=== PATIENT | male | born 1990 | race Caucasian/White ===

== ENCOUNTER 2017-03-25 02:47 | Emergency (ER) | payer OTHER ==
[2017-03-25 03:01] VITALS: BP 138/63; PULSE 87; TEMP 98.3; BMI 27.3
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
== END 2017-03-25 03:45 | disposition home or self-care (01) ==
LOC: JER 02:47
DX: Z77.21 Contact with and (suspected) exposure to potentially hazardous body fluids (principal); Y35.891A Legal intervention involving other specified means, law enforcement official injured, initial encounter; Y93.89 Activity, other specified; Y92.89 Other specified places as the place of occurrence of the external cause; Y99.8 Other external cause status
CPT/HCPCS: 99281-25

== ENCOUNTER 2017-07-05 | Emergency (ER) | payer OTHER ==
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
[2017-07-05 01:01] VITALS: BP 121/78; PULSE 85; TEMP 97.7; BMI 28.1
== END 2017-07-05 01:06 | disposition home or self-care (01) ==
LOC: JER
DX: Z77.21 Contact with and (suspected) exposure to potentially hazardous body fluids (principal); Y35.811A Legal intervention involving manhandling, law enforcement official injured, initial encounter; Y93.89 Activity, other specified; Y92.89 Other specified places as the place of occurrence of the external cause; Y99.0 Civilian activity done for income or pay
CPT/HCPCS: 99281-25

== ENCOUNTER 2017-11-14 21:01 | Emergency (ER) | payer OTHER ==
[2017-11-14] MEDS ORDERED: DIPHTH,PERTUSS(ACELL),TET VAC 0.5 ML VIAL IM ONE (21:08)
[2017-11-14] MEDS ORDERED: BACITRACIN 15 GM TUBE TOPICAL OINTMENT TP ONE (21:09)
[2017-11-14 21:10] VITALS: BP 141/76; PULSE 93; TEMP 98.4; BMI 28.5
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
[2017-11-14] MEDS ORDERED: BACITRACIN 0.9 GM PACKET ONE (21:14)
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
== END 2017-11-14 21:24 | disposition home or self-care (01) ==
LOC: JERFT 21:01
PROC: 3E0234Z Introduction of Serum, Toxoid and Vaccine into Muscle, Percutaneous Approach (ICD-10-PCS; principal; 2017-11-14)
DX: S60.511A Abrasion of right hand, initial encounter (principal); S60.412A Abrasion of right middle finger, initial encounter; Y35.891A Legal intervention involving other specified means, law enforcement official injured, initial encounter; Y93.89 Activity, other specified; Y92.89 Other specified places as the place of occurrence of the external cause; Y99.8 Other external cause status
CPT/HCPCS: 99281-25

== ENCOUNTER 2018-01-09 20:17 | Emergency (ER) | payer OTHER ==
[2018-01-09 20:31] VITALS: BP 132/81; PULSE 81; TEMP 98.6; BMI 29.0
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
== END 2018-01-09 21:01 | disposition home or self-care (01) ==
LOC: JERFT 20:17
DX: M25.522 Pain in left elbow (principal); V43.52XA Car driver injured in collision with other type car in traffic accident, initial encounter; Y92.414 Local residential or business street as the place of occurrence of the external cause; Y93.89 Activity, other specified; Y99.0 Civilian activity done for income or pay
CPT/HCPCS: 99281-25

== ENCOUNTER 2018-06-29 21:05 | Emergency (ER) | payer OTHER ==
[2018-06-29 21:08] VITALS: BP 111/61; PULSE 74; TEMP 98.3; BMI 26.6
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
--- NOTE | 2018-06-29 21:58 | PDOC ---
*Physical Exam - Vital Signs Last Vital Signs Temp Pulse Resp BP Pulse Ox 98.3 F 74 18 111/61 97 06/29/18 21:07 06/29/18 21:07 06/29/18 21:07 06/29/18 21:07 06/29/18 21:07 ED Treatment Course - LABORATORY CBC & Chemistry Diagram: 06/29/18 22:20 06/29/18 22:20 Medical Decision Making - Medical Decision Making 06/29/18 21:58 Patient seen by the advanced practice provider under my direct supervision. Ancillary testing reviewed as necessary. I agree with plan as outlined by the advanced practice provider. *DC/Admit/Observation/Transfer Diagnosis at time of Disposition: Exposure to blood and/or body fluid - Referrals Referrals: Karri Fletcher MD [Primary Care Provider] - - Patient Instructions Printed Discharge Instructions: How to Handle Body Fluid Exposure -- Non- Healthcare Worker (At Home, [facility] Additional Instructions: please follow up with your employee health as soon as possible. - Post Discharge Activity Forms/Work/School Notes: Back to Work
[2018-06-29 22:27] LABS: BASO % 0.8 % (0-2.0); EOS % 3.5 % (0-4.5); HEMATOCRIT 40.4 % (35.4-49); HEMOGLOBIN 13.8 GM/dL (11.7-16.9); LYMPH % 29.6 % (8-40); MCH 27.4 pg (25.7-33.7); MCHC 34.1 g/dl (32.0-35.9); MEAN CELL VOLUME 80.3 fl (80-96); MEAN PLT VOLUME 10.2 fl (7.5-11.1); MONO % 6.7 % (3.8-10.2); NEUT % 59.4 % (42.8-82.8); PLATELET COUNT 179 K/MM3 (134-434); RBC 5.03 M/mm3 (4.00-5.60); RDW 14.8 % (11.9-15.9)
[2018-06-29 23:59] LABS: ALBUMIN 4.4 g/dl (3.4-5.0); ALK PHOS 64 U/L (45-117); ANION GAP 7 MMOL/L (8-16); BILIRUBIN,TOTAL 0.9 mg/dL (0.2-1); BLOOD UREA NITROGEN 18 mg/dL (7-18); CALCIUM 9.2 mg/dL (8.5-10.1); CHLORIDE 102 mmol/L (98-107); CHOLESTEROL 216 mg/dL (50-200); CO2 26 mmol/L (21-32); CREATININE 0.8 mg/dL (0.55-1.3); GLUCOSE,RANDOM 87 mg/dL (74-106); LDH 167 U/L (87-246); PHOSPHOROUS 3.2 mg/dL (2.5-4.9); POTASSIUM 4.1 mmol/L (3.5-5.1); SGOT/AST 17 U/L (15-37); SGPT/ALT 35 U/L (13-61); SODIUM 135 mmol/L (136-145); TRIGLYCERIDES 97 mg/dL (0-150); URIC ACID 5.2 mg/dL (2.6-7.2)
[2018-06-30 00:40] LABS: GAMMA GLUTAMYL TRANSPEPTIDASE 23 U/L (5-85)
[2018-07-01 05:10] LABS: HBsAG SCREEN Negative (Negative)
== END 2018-06-29 23:23 | disposition home or self-care (01) ==
LOC: JER 21:05 → JERFT 21:05 → JER 23:23
DX: Z77.21 Contact with and (suspected) exposure to potentially hazardous body fluids (principal); S50.812A Abrasion of left forearm, initial encounter; Y35.811A Legal intervention involving manhandling, law enforcement official injured, initial encounter; Y93.89 Activity, other specified; Y92.89 Other specified places as the place of occurrence of the external cause; Y99.0 Civilian activity done for income or pay
CPT/HCPCS: 36415; 80053; 82465; 82977; 83615; 84100; 84478; 84550; 85025; 86317; 86706; 86803; 87340; 87389; 99281-25

== ENCOUNTER 2019-03-08 16:46 | Emergency (ER) | payer OTHER ==
[2019-03-08] MEDS ORDERED: BACITRACIN 0.9 GM PACKET TP ONE (16:52)
[2019-03-08] MEDS ORDERED: ACETAMINOPHEN 500 MG TABLET (FP) PO ONE (16:52)
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
[2019-03-08 16:53] VITALS: BP 136/85; PULSE 114; TEMP 98.2; BMI 28.1
--- NOTE | 2019-03-08 17:20 | PDOC ---
History of Present Illness - General Chief Complaint: Injury Stated Complaint: [employer] WORK RELATED Time Seen by Provider: 03/08/19 16:49 History Source: Patient - History of Present Illness Timing/Duration: reports: this evening Severity: Yes: mild Location: reports: hands Past History - Past Medical History Allergies/Adverse Reactions: Allergies Allergy/AdvReac Type Severity Reaction Status Date / Time No Known Allergies Allergy Verified 03/08/19 16:53 Home Medications: Ambulatory Orders NK [No Known Home Medication] 06/10/15 COPD: No - Immunization History Immunization Up to Date: Yes - Psycho Social/Smoking Cessation Hx Smoking History: Never smoked Have you smoked in the past 12 months: No Hx Alcohol Use: Yes Drug/Substance Use Hx: No Substance Use Type: None Review of Systems - Review of Systems Integumentary: Yes: Bruising *Physical Exam - Vital Signs Last Vital Signs Temp Pulse Resp BP Pulse Ox 98.2 F 114 H 16 136/85 96 03/08/19 16:50 03/08/19 16:50 03/08/19 16:50 03/08/19 16:50 03/08/19 16:50 - Physical Exam General Appearance: Yes: Appropriately Dressed. No: Apparent Distress HEENT: positive: Normal Voice Neck: positive: Supple Respiratory/Chest: negative: Respiratory Distress Extremity: positive: Pedal Edema (multiple superficial abrasions to dorsum of hand, b/l, no joint swelling/deformity) Medical Decision Making - Medical Decision Making 03/08/19 17:19 29-year-old male, no significant history, works for the [employer] and here with bilateral hand injury after arresting perp today. States he sustained injuries while wrestling perp up to the ground. No other injuries at this time. Patient well-appearing and stable with superficial abrasions to dorsum of bilateral hands. No evidence of serious injury at this time. Local wound care and dressing applied here. DC to return as needed Discharge - Discharge Information Problems reviewed: Yes Clinical Impression/Diagnosis: Right wrist pain, Abrasion Disposition: HOME - Follow up/Referral Referrals: Karri Fletcher MD [Primary Care Provider] - - Patient Discharge Instructions Patient Printed Discharge Instructions: DI for Abrasion Additional Instructions: You sustained superficial abrasions to hands but no sign of any serious injury at this time Abrasions usually heal on their own. Return for signs of infection as discussed today - Post Discharge Activity
== END 2019-03-08 17:29 | disposition home or self-care (01) ==
LOC: JERFT 16:46
DX: S69.81XA Other specified injuries of right wrist, hand and finger(s), initial encounter (principal); S60.511A Abrasion of right hand, initial encounter; Y35.811A Legal intervention involving manhandling, law enforcement official injured, initial encounter; Y93.89 Activity, other specified; Y92.89 Other specified places as the place of occurrence of the external cause; Y99.0 Civilian activity done for income or pay
CPT/HCPCS: 99281-25